=== PATIENT | female | born 1960 | race Caucasian/White ===

== ENCOUNTER 2022-04-21 09:34 | Observation (INO) ==
[2022-04-21 11:04] LABS: Basophils # (auto) 0.01 K/uL (0-0.2); Basophils % (auto) 0.2 %; Eosinophils # (auto) 0.01 K/uL (0-0.50); Eosinophils % (auto) 0.2 %; Hemoglobin 14.6 g/dl (12.0-16.0); Immature Granulocytes # (auto) 0.01 K/uL (0.00-0.02); Immature Granulocytes % (auto) 0.2 %; Lymphocytes # (auto) 0.59 K/uL (1.2-3.4); Mean Corpuscular Hemoglobin 31.3 pg (25.0-34.0); Mean Corpuscular Volume 92.3 fL (80.0-100.0); Mean Platelet Volume 9.2 fL (9.4-12.3); Monocytes # (auto) 0.25 K/uL (0.24-0.82); Monocytes % (auto) 5.9 %; Neutrophils # (auto) 3.34 K/uL (1.4-6.5); Neutrophils % (auto) 79.5 %; Platelet Count 284 K/uL (130-400); RDW Coefficient of Variation 12.7 % (11.5-14.5); RDW Standard Deviation 43.2 fL (36.4-46.3); Red Blood Count 4.66 M/uL (3.93-5.22); White Blood Count 4.21 K/ul (4.8-10.8)
[2022-04-21 11:27] LABS: Albumin Globulin Ratio 1.5 (0.9-2); Albumin Level 4.7 gm/dl (3.4-5.0); BUN Creatinine Ratio 14.1 (10-20); Bilirubin,Total 0.5 mg/dl (0.2-1.0); Calcium 9.8 mg/dl (8.5-10.1); Creatinine Clr Calc Pharmacy 65.8 ml/min; Est GFR (African American) 95.1 ml/min; Est GFR (Non-African American) 82.1 ml/min; Globulin 3.2 gm/dl (2.5-4.0); Potassium 3.4 mmol/L (3.5-5.1); Total Protein 7.9 gm/dl (6.0-8.3)
[2022-04-21] MEDS ORDERED: SODIUM CHLORIDE 0.9% 1000ML 1,000 ML IV ONE (12:07)
--- NOTE | 2022-04-21 12:07 | Emergency Department Note ---
Impression & Plan Syncope, Acute electrocardiogram changes, Diarrhea Admit to the [facility] ED Provider Note NAME: MICHELLE NOLEN AGE: 61 SEX: F ARRIVES VIA: Walk-In INFORMANT: Patient and her ED PROVIDER(S): Selena Beebe DO CHIEF COMPLAINT: Vomiting and diarrhea PLAN: Disposition: Admit to the [facility] Condition: Guarded MEDICAL DECISION MAKING: This is a 61-year-old female patient who presents to the emergency department with vomiting and diarrhea and an episode of syncope. The patient's vomiting and diarrhea subsided here in the emergency department. Initial EKG showed significant ST segment depression in the inferior leads compared to previous EKGs. Troponin was negative. Patient had no chest pain or episodes of SVT but was feeling some palpitations overnight. 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 Electrolytes are unremarkable. Patient's EKG was repeated here in the emergency department and the ST segment depression in the inferior leads seem to resolve but I remain concerned about those initial findings. [facility] and [facility] will evaluate for further management. Triage Nursing notes reviewed and agree with them. Additional history obtained from the is at the bedside Prior medical records reviewed Vital Signs: reviewed and remarkable for tachycardia Differential diagnosis: Cardiac dysrhythmia, cardiac ischemia, electrolyte abnormality, foodborne illness, viral gastroenteritis ER treatment provided: IV normal saline Diagnostics interpreted by me: ECG: Normal sinus rhythm at a rate of [address] with [address] There is ST segment depression in the inferior leads concerning for ischemia. Repeat ECG normal sinus rhythm at a rate of [address] resolution of the [address] segment depression in the inferior leads Cardiac Monitoring: Sinus tachycardia at 109 Laboratory studies: See below HPI: 61/F arrives for evaluation of vomiting and diarrhea. The patient had been on vacation last week and arrived home Thursday night. She was in her usual state of health. She awoke on Thursday morning with profuse diarrhea, nausea and then vomiting. Patient felt unwell throughout the day and tried to hydrate. Patient developed low-grade fever. She took a home COVID test which was negative. The patient continued to describe significant nausea and a fullness in her chest. This morning, the patient had a syncopal event which is not unusual for her when she feels unwell as she describes it. ROS: as per HPI for pertinent positives & negatives. A total of 10 systems reviewed and were otherwise negative. PAST MEDICAL HISTORY:See Below PAST SURGICAL HISTORY:See Below FAMILY HISTORY:See Below SOCIAL HISTORY:See Below HOME MEDICATIONS:See list ALLERGIES:None VITALS:See Below PHYSICAL EXAMINATION: HEENT: Head - normocephalic and atraumatic. Pupils are equal, round, and reactive to light. Extraocular eye muscles are intact, and sclera are anicteric. Nose - moist nasal mucosa without discharge. Mouth - moist buccal mucosa. Oropharynx is nonerythematous and there is no tonsillar exudate or edema noted. Neck: Supple; no cervical lymphadenopathy or thyromegaly Heart: Tachycardic rate and regular rhythm. There is a normal S1 and S2 with no murmurs, clicks, or gallops appreciated. Lungs: Clear to auscultation bilaterally with no wheezes, rales, or rhonchi. Abdomen: Soft, completely nontender, nondistended, with good bowel sounds. There are no palpable pulsatile masses or hepatosplenomegaly. There is no guarding, rigidity, or rebound noted. Extremities: No evidence of cyanosis, clubbing, or edema. There are easily palpable peripheral pulses. Skin: warm and dry with good turgor and no rashes. ED COURSE: Times/Reassessments: 1110: The patient was evaluated in room C9. A complete history and physical was performed. An order was placed for continuous cardiac monitoring. Patient was in a sinus tachycardia at 109. A twelve-lead EKG was obtained as described above. A repeat twelve-lead was ordered. COVID testing was ordered. Patient was bolused with a liter of normal saline solution. The patient could not provide a urine specimen or a stool specimen for testing. She had no further vomiting or diarrhea while here in the emergency department. I reviewed the results of the laboratory studies with the patient. She complained of a headache and was given a gram of Tylenol. [facility] and [facility] will evaluate for further management. Selena Beebe, DO Past Med/Surg History Medical History Ebstein anomaly Mitral valve prolapse SVT (supraventricular tachycardia) Family History Other Family history non-contributory Social History Smoking Status: Never smoker Preferred Language: Persian Feels Safe at Home: Yes Allergies Allergies Allergy/AdvReac Type Severity Reaction Status Date / Time No Known Allergies Allergy Unverified 06/13/16 17:29 Home Meds Home Medications Medication Instructions Recorded Confirmed eletriptan 20 mg tablet (Relpax) 20 mg PO DAILY PRN Headache 09/16/21 09/16/21 metoprolol succinate 25 mg 12.5 mg PO BID 09/16/21 09/16/21 tablet,extended release 24 hr tafluprost (PF) 0.0015 % eye drops 1 drp OPB HS 09/16/21 09/16/21 in a dropperette (Zioptan (PF)) trazodone 50 mg tablet 25 mg PO DAILY 09/16/21 09/16/21 Results & Data (ED) Vital Signs Vital Signs - 24 hr 04/21/22 09:46 04/21/22 12:42 04/21/22 13:00 Temperature 37.1 C Temperature Source Temporal Artery Scan Pulse Rate 109 H 85 Pulse Rate from SpO2 Sensor 84 Respiratory Rate 18 20 Respiratory Effort / Characteristics Non-Labored Spontaneous Respiratory Depth Normal Respiratory Pattern Regular Blood Pressure 123/70 123/74 Blood Pressure Mean 87 90 Pulse Oximetry 95 98 Oxygen Delivery Method Room Air Sepsis Recent Fever Within 48 Hours No Sepsis New/Unexplained Change in Mental Status No Sepsis Action Taken by Nursing No Action Required 04/21/22 13:00 Temperature Temperature Source Pulse Rate 82 Pulse Rate from SpO2 Sensor 82 Respiratory Rate 16 Respiratory Effort / Characteristics Respiratory Depth Respiratory Pattern Blood Pressure Blood Pressure Mean Pulse Oximetry 98 Oxygen Delivery Method Room Air Sepsis Recent Fever Within 48 Hours Sepsis New/Unexplained Change in Mental Status Sepsis Action Taken by Nursing Laboratory Data Result diagrams: 04/21/22 10:44 04/21/22 10:44 Lab Results 04/21/22 04/21/22 04/21/22 Range/Units 10:44 10:44 10:44 WBC 4.21 L (4.8-10.8) K/ul RBC 4.66 (3.93-5.22) M/uL Hgb 14.6 (12.0-16.0) g/dl Hct 43.0 (34.1-44.9) % MCV 92.3 (80.0-100.0) fL MCH 31.3 (25.0-34.0) pg MCHC 34.0 (32.0-36.0) g/dL RDW Std Deviation 43.2 (36.4-46.3) fL RDW Coeff of Marguerite 12.7 (11.5-14.5) % Plt Count 284 (130-400) K/uL MPV 9.2 L (9.4-12.3) fL Immature Gran % (Auto) 0.2 % Neut % (Auto) 79.5 % Lymph % (Auto) 14.0 % [place] % (Auto) 5.9 % Eos % (Auto) 0.2 % Baso % (Auto) 0.2 % Neut # (Auto) 3.34 (1.4-6.5) K/uL Lymph # (Auto) 0.59 L (1.2-3.4) K/uL [place] # (Auto) 0.25 (0.24-0.82) K/uL Eos # (Auto) 0.01 (0-0.50) K/uL Baso # (Auto) 0.01 (0-0.2) K/uL Immature Gran # (Auto) 0.01 (0.00-0.02) K/uL Sodium 140 (136-145) mmol/L Potassium 3.4 L (3.5-5.1) mmol/L Chloride 102 (98-107) mmol/L Carbon Dioxide 28 (21-32) mmol/L Anion Gap 10 (3-11) BUN 11 (6-23) mg/dl Creatinine 0.78 (0.6-1.2) mg/dl Est Cr Clr Drug Dosing 65.8 ml/min Est GFR ( Amer) 95.1 ml/min Est GFR (Non-Af Amer) 82.1 ml/min BUN/Creatinine Ratio 14.1 (10-20) Glucose 104 H (70-99(Fasting)) mg/dl Calcium 9.8 (8.5-10.1) mg/dl Total Bilirubin 0.5 (0.2-1.0) mg/dl AST 35 (13-39) U/L ALT 37 (7-52) U/L Alkaline Phosphatase 60 (34-104) U/L Troponin I High Sens 3.0 (0-14) pg/ml Total Protein 7.9 (6.0-8.3) gm/dl Albumin 4.7 (3.4-5.0) gm/dl Globulin 3.2 (2.5-4.0) gm/dl Albumin/Globulin Ratio 1.5 (0.9-2) Lipase 13 (11-82) U/L SARS-CoV-2, RNA, NAAT (NEGATIVE) 04/21/22 04/21/22 Range/Units 11:40 11:46 WBC (4.8-10.8) K/ul RBC (3.93-5.22) M/uL Hgb (12.0-16.0) g/dl Hct (34.1-44.9) % MCV (80.0-100.0) fL MCH (25.0-34.0) pg MCHC (32.0-36.0) g/dL RDW Std Deviation (36.4-46.3) fL RDW Coeff of Marguerite (11.5-14.5) % Plt Count (130-400) K/uL MPV (9.4-12.3) fL Immature Gran % (Auto) % Neut % (Auto) % Lymph % (Auto) % [place] % (Auto) % Eos % (Auto) % Baso % (Auto) % Neut # (Auto) (1.4-6.5) K/uL Lymph # (Auto) (1.2-3.4) K/uL [place] # (Auto) (0.24-0.82) K/uL Eos # (Auto) (0-0.50) K/uL Baso # (Auto) (0-0.2) K/uL Immature Gran # (Auto) (0.00-0.02) K/uL Sodium (136-145) mmol/L Potassium (3.5-5.1) mmol/L Chloride (98-107) mmol/L Carbon Dioxide (21-32) mmol/L Anion Gap (3-11) BUN (6-23) mg/dl Creatinine (0.6-1.2) mg/dl Est Cr Clr Drug Dosing ml/min Est GFR ( Amer) ml/min Est GFR (Non-Af Amer) ml/min BUN/Creatinine Ratio (10-20) Glucose (70-99(Fasting)) mg/dl Calcium (8.5-10.1) mg/dl Total Bilirubin (0.2-1.0) mg/dl AST (13-39) U/L ALT (7-52) U/L Alkaline Phosphatase (34-104) U/L Troponin I High Sens Cancelled (0-14) pg/ml Total Protein (6.0-8.3) gm/dl Albumin (3.4-5.0) gm/dl Globulin (2.5-4.0) gm/dl Albumin/Globulin Ratio (0.9-2) Lipase (11-82) U/L SARS-CoV-2, RNA, NAAT NEGATIVE (NEGATIVE) Administered Medications Discontinued Medications Sodium Chloride (Nss 1000ml) 1,000 mls @ 999 mls/hr IV .Q1H1M ONE Stop: 04/21/22 13:07 Last Admin: 04/21/22 12:36 Dose: 999 mls/hr Documented By: NMS Discharge Plan Visit Data Chief Complaint: Illness Stated Complaint: REF BY , DIARRHEA, VOMITNG, FEVER ED Provider: Selena Beebe Discharge Problem: Syncope, Acute electrocardiogram changes, Diarrhea Forms Stand Alone Forms: My [facility] Prescriptions Prescriptions: No Action trazodone 50 mg tablet 25 mg PO DAILY metoprolol succinate 25 mg tablet extended release 24 hr 12.5 mg PO BID eletriptan [Relpax] 20 mg tablet 20 mg PO DAILY PRN (Reason: Headache) Zioptan (PF) 0.0015 % dropperette 1 drp OPB HS Referrals Referrals: Radha Rhodes DO [Primary Care Provider] - : Syncope Qualifiers: Syncope type: unspecified Qualified Code(s): R55 - Syncope and collapse Diarrhea Qualifiers: Diarrhea type: unspecified type Qualified Code(s): R19.7 - Diarrhea, unspecified
[2022-04-21] MEDS ORDERED: ACETAMINOPHEN 500 MG TAB PO STA (14:17)
[2022-04-21] MEDS ORDERED: POTASSIUM CHLORIDE CRTAB 20 MEQ TABCR PO STA (14:30)
--- NOTE | 2022-04-21 15:50 | History & Physical Report ---
Date of Service April 21, 2022 Assessment & Plan (1) Syncope: Plan: 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 Reported to have transient EKG changes by EKG physician although initial troponin was negative. - Observe on telemetry overnight - Trend troponin - EKG in AM and with any cardiac symptoms - Spoke with cardiology - will consult and order ECHO (2) Acute electrocardiogram changes: Plan: See plan for #1 (3) Hypokalemia: Plan: - Replete oral and in IVF x 1 liter (4) Diarrhea: Plan: - Check stool studies for infection - Will give an additional one liter of IVF since not yet tolerated oral intake (5) Ebstein anomaly: Plan: Appreciate cardiology input (6) Paroxysmal atrial tachycardia: (7) Migraine: (8) Depression with anxiety: (9) Glaucoma: Plan: - Continue outpatient eye drops - pt brought from home Plan Continue other home medications and supplements as appropriate - discussed appropriate substitutions on med rec with pharmacy. Pt seen and reviewed with attending physician, Dr. Polanco. Plan of care discussed and as outlined above. Code Status: Full code DVT Prophylaxis: Marcelo Chaparro PA-C History of Present Illness Chief Complaint: Diarrhea, weakness, syncope Primary Care Provider: Radha Rhodes DO This is a 61 y/o female with a PMH of Ebstein's anomaly, migraine, lichen planus, depression and glaucoma who presents to the ED today with diarrhea, weakness, and syncope. Pt reports that she was on vacation last week and returned two days ago. Yesterday morning, she woke up and noted that her stomach felt unsettled then developed multiple episodes of diarrhea. By afternoon, she had developed associated vomiting. She was unable to keep even fluids down yesterday. In the evening she started to feel a bit better and went to be around 10 pm. At 12:15 am she woke up and attempted to go the bathroom. Because of her history of syncope with dehydration due to Ebstein's, she crawled on the floor but was so weak, she was unable to make it to the bathroom and passed out. She thinks that she was only out for a few seconds but she lay on the floor for five hours because she was too weak to get back to her bed. She continued with vomiting and diarrhea this morning and was unable to maintain oral intake so she called her line construction superintendent, Dr. Demarco, whose office recommended she go to the ED to be evaluated for dehydration. In the ED, she was noted to have transient EKG changes concerning for ischemia so she was referred for admission. Currently, pt reports some additional episodes of diarrhea in the ED but no further vomiting. Still has not taken anything significant by mouth since Thursday. She denies chest pain or heaviness but did note palpitations last night. No shortness of breath, cough, or URI symptoms. Has started with a CHAUDHARI in the ED. Has noted positional lightheadedness. Urine output today is decreased. Low-grade fevers yesterday. Granddaughter had a half day of vomiting late last week but no diarrhea, no other known sick contacts. Took a rapid COVID test at home that was negative. Allergies Allergy/AdvReac Type Severity Reaction Status Date / Time No Known Allergies Allergy Unverified 06/13/16 17:29 Home Medications Medication Instructions Recorded Confirmed Type eletriptan 20 mg tablet (Relpax) 20 mg PO 4XD PRN Migraine Headache 09/16/21 04/21/22 History tafluprost (PF) 0.0015 % eye drops 1 drp OPB HS 09/16/21 04/21/22 History in a dropperette (Zioptan (PF)) trazodone 50 mg tablet 25 - 50 mg PO HS 09/16/21 04/21/22 History calcium carb-Ca gluc 500 mg 1 tab PO DAILY 04/21/22 04/21/22 History calcium-magnesium ox-Mg gluc 250 mg tablet (Calcium Magnesium) carboxymethylcellulose sodium 0.25 1 drp ophthalmic (eye) BID 04/21/22 04/21/22 History % eye drops (TheraTears) cholecalciferol (vitamin D3) 25 25 mcg PO DAILY 04/21/22 04/21/22 History mcg (1,000 unit) capsule magnesium oxide 400 mg PO DAILY 04/21/22 04/21/22 History vrzrydoz-umn- 250 mg-dha 90 1 cap PO QAM 04/21/22 04/21/22 History mg-epa 160 [id number] capsule (Ocuvite Adult 50 Plus) potassium chloride 10 mEq 10 meq PO DAILY 04/21/22 04/21/22 History tablet,extended release(part/cryst) turmeric root extract 500 mg 500 mg PO DAILY 04/21/22 04/21/22 History capsule vitamin B complex 1 tab PO DAILY 04/21/22 04/21/22 History Past Med/Surg History Medical History (Updated 04/22/22 @ 09:35 by Tram Garza PA-C) Depression with anxiety Ebstein anomaly Glaucoma Lichen planus Migraine Paroxysmal atrial tachycardia Surgical History (Updated 04/21/22 @ 15:45 by Venita Christianson PA-C) History of cataract surgery History of laparoscopic cholecystectomy Family History Other Family history non-contributory Social History Smoking Status: Never smoker Second Hand Exposure: No; Hx Alcohol Use: Yes Alcohol type: wine Hx Substance Use: No Preferred Language: Romanian Communication Ability: Effective 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 Beliefs That Will Affect Care: None Current Living Situation: Spouse Feels Safe at Home: Yes Assistive Devices: None Review of Systems Review of Systems: All systems reviewed & are unremarkable except as noted in HPI & below Constitutional: + fever, + weakness and + anorexia Eyes: no diplopia and no worsening vision Ear, Nose, Mouth, Throat: no nasal congestion and no sore throat Respiratory: no cough and no dyspnea Cardiovascular: + palpitations and + syncope; no chest pain and no edema Gastrointestinal: as per Subjective / HPI Genitourinary: + decreased urination; no dysuria and no hematuria Musculoskeletal: no back pain and no neck pain Integumentary: no rash and no yellowing of the skin Neurologic: + generalized weakness and + headache(s) Psychiatric: + anxiety Physical Exam Constitutional: + thin; no acute distress Eyes: PERRL, conjunctivae normal, anicteric sclerae ENMT: external ear and nose normal, oropharynx normal Neck: trachea midline Respiratory: no respiratory distress and no labored breathing Auscultation: lungs clear to auscultation bilaterally; no rales, no rhonchi and no wheezes Cardiovascular: Rate/Rhythm: regular rate and regular rhythm Heart Sounds: + murmur Vessels: dorsalis pedis pulses present and radial pulses present Extremities: no pedal edema Gastrointestinal (Abdomen): Inspection/Auscultation: normal bowel sounds; abdomen not distended Percussion/Palpation: abdomen soft; abdomen nontender Musculoskeletal: Head/Neck/Chest: normocephalic, head atraumatic and neck supple Skin: no jaundice Neurologic: moves all extremities; no focal motor deficits Psychiatric: Orientation: alert and oriented x 3 Results & Data Results & Data ([facility]) Vital Signs (Past 12 Hours) Vital Signs Temp Pulse Resp BP Pulse Ox O2 Del Method 04/21/22 13:00 82 16 98 Room Air 04/21/22 13:00 123/74 04/21/22 12:42 85 20 98 04/21/22 09:46 37.1 C 109 H 18 123/70 95 Room Air Laboratory Results Laboratory Results - last 24 hr 04/21/22 04/21/22 04/21/22 10:04 10:44 10:44 WBC 4.21 L RBC 4.66 Hgb 14.6 Hct 43.0 MCV 92.3 MCH 31.3 MCHC 34.0 RDW Std Deviation 43.2 RDW Coeff of Marguerite 12.7 Plt Count 284 MPV 9.2 L Immature Gran % (Auto) 0.2 Neut % (Auto) 79.5 Lymph % (Auto) 14.0 [place] % (Auto) 5.9 Eos % (Auto) 0.2 Baso % (Auto) 0.2 Neut # (Auto) 3.34 Lymph # (Auto) 0.59 L [place] # (Auto) 0.25 Eos # (Auto) 0.01 Baso # (Auto) 0.01 Immature Gran # (Auto) 0.01 Sodium 140 Potassium 3.4 L Chloride 102 Carbon Dioxide 28 Anion Gap 10 BUN 11 Creatinine 0.78 Est Cr Clr Drug Dosing 65.8 Est GFR ( Amer) 95.1 Est GFR (Non-Af Amer) 82.1 BUN/Creatinine Ratio 14.1 Glucose 104 H Calcium 9.8 Magnesium 1.9 Total Bilirubin 0.5 AST 35 ALT 37 Alkaline Phosphatase 60 Troponin I High Sens Total Protein 7.9 Albumin 4.7 Globulin 3.2 Albumin/Globulin Ratio 1.5 Lipase 13 SARS-CoV-2, RNA, NAAT 04/21/22 04/21/22 04/21/22 10:44 11:40 11:46 WBC RBC Hgb Hct MCV MCH MCHC RDW Std Deviation RDW Coeff of Marguerite Plt Count MPV Immature Gran % (Auto) Neut % (Auto) Lymph % (Auto) [place] % (Auto) Eos % (Auto) Baso % (Auto) Neut # (Auto) Lymph # (Auto) [place] # (Auto) Eos # (Auto) Baso # (Auto) Immature Gran # (Auto) Sodium Potassium Chloride Carbon Dioxide Anion Gap BUN Creatinine Est Cr Clr Drug Dosing Est GFR ( Amer) Est GFR (Non-Af Amer) BUN/Creatinine Ratio Glucose Calcium Magnesium Total Bilirubin AST ALT Alkaline Phosphatase Troponin I High Sens 3.0 Cancelled Total Protein Albumin Globulin Albumin/Globulin Ratio Lipase SARS-CoV-2, RNA, NAAT NEGATIVE Medications Administered Discontinued Medications Acetaminophen (Acetaminophen 500 Mg Tab) 1,000 mg PO NOW STA Stop: 04/21/22 14:18 Last Admin: 04/21/22 15:23 Dose: 1,000 mg Documented By: MELE Sodium Chloride (Nss 1000ml) 1,000 mls @ 999 mls/hr IV .Q1H1M ONE Stop: 04/21/22 13:07 Last Infusion: 04/21/22 13:37 Dose: 0 mls/hr Documented By: Admin: 04/21/22 12:36 Dose: 999 mls/hr Documented By: NIK Potassium Chloride (Potassium Chloride Crtab 20 Meq Tabcr) 40 meq PO NOW STA Stop: 04/21/22 14:31 Last Admin: 04/21/22 15:23 Dose: 40 meq Documented By: MELE Code Status & VTE Plan VTE Prophylaxis Plan VTE Prophylaxis will be ordered: Yes Supervising Physician Co-Signing Physician Notes Pt was seen and examined. Agreed with Venita MCKEON exam, assessment and plan. 61 y/o female with a PMH of Ebstein's anomaly, migraine, lichen planus, depressi on and glaucoma who presents to the ED today with worsening diarrhea, weakness, and syncope. Pt said that she just go back from a family vacation trip 2 days ago. She said yesterday she started to have multiple episodes of watery diarrhea associated with vomiting. She said overnight she had more episodes of diarrhea and vomiting. She said that she was not able to keep anything on her stomach. Because of her history of syncope with dehydration due to Ebstein's, she crawled on the floor but was so weak, she was unable to make it to the bathroom and passed out. She was brought to the ED for further eval. In the ED, she was noted to have transient EKG changes concerning for ischemia. She was seen by cardiology and echo performed- result pending. Covid 19 test was negative on admission. Stool study sent. Continue IVF for now. Will monitor electrolytes. Continue monitor closely in tele. MD Sherri (1) Diarrhea Diarrhea type: unspecified type Qualified Code(s): R19.7 - Diarrhea, unspecified (2) Syncope Syncope type: unspecified Qualified Code(s): R55 - Syncope and collapse
--- NOTE | 2022-04-21 16:29 | Electrocardiogram Report ---
Test Reason : Blood Pressure : / mmHG Vent. Rate : 082 BPM Atrial Rate : 082 BPM P-R Int : 126 ms QRS Dur : 084 ms QT Int : 376 ms P-R-T Axes : -14 -15 002 degrees QTc Int : 439 ms Normal sinus rhythm Moderate voltage criteria for LVH, may be normal variant Borderline ECG When compared with ECG of 16-SEP-2021 09:32, Premature atrial complexes are no longer Present Questionable change in QRS axis T wave inversion now evident in Inferior leads Confirmed by Kapil Estrella ([id number]) on 04/21/2022 4:29:47 PM Referred By: Provider Outside Confirmed By:Kapil Estrella
[2022-04-21] MEDS ORDERED: ACETAMINOPHEN 325 MG TAB PO PRN (16:57)
[2022-04-21 17:19] LABS: Appearance Urine Clear (Clear); Bacteria Urine Automated Negative (Negative); Bilirubin Urine Negative (Negative); Blood Urine Negative (Negative); Color Urine Dark Yellow; Epithelial Cell Urine Auto 20-30 /lpf (0-5); Glucose Urine UA Negative (Negative); Ketones Urine 4+ (Negative); Leukocyte Esterase Urine Negative (Negative); Nitrite Urine Negative (Negative); Protein Urine 1+ (Negative); Specific Gravity Urine 1.029 (1.000-1.030); Urobilinogen Urine Negative (Negative)
[2022-04-21] MEDS ORDERED: NSS + 20MEQ KCL 20 MEQ/1,000 ML BAG IV SCH (18:00)
[2022-04-21] MEDS: traZODone HCL 50 MG TAB PO SCH (20:42)
[2022-04-21] MEDS: ARTIFICIAL TEARS OP SCH (20:51)
[2022-04-21] MEDS: TAFLUPROST 0.0015% OP SCH (20:54)
[2022-04-21 22:48] LABS: Adenovirus F 40/41 PCR Not Detected (NotDetected); Astrovirus PCR Not Detected (NotDetected); Campylobacter PCR Not Detected (NotDetected); Clostridium diff Toxin A/B PCR Not Detected (NotDetected); Cryptosporidium PCR Not Detected (NotDetected); Cyclospora cayetanensis PCR Not Detected (NotDetected); Entamoeba histolytica PCR Not Detected (NotDetected); Enteroaggregative E.coli(EAEC) Not Detected (NotDetected); Enterotoxigenic E.coli (ETEC) Not Detected (NotDetected); Giardia lamblia PCR Not Detected (NotDetected); Plesiomonas shigelloides PCR Not Detected (NotDetected); Rotavirus A PCR Not Detected (NotDetected); Salmonella PCR Not Detected (NotDetected); Sapovirus PCR Not Detected (NotDetected); Shiga-like Toxin E.coli (STEC) Not Detected (NotDetected); Shigella/Enteroinvasive E.coli Not Detected (NotDetected); Vibrio cholerae PCR Not Detected (NotDetected); Vibrio species PCR Not Detected (NotDetected); Yersinia enterocolitica PCR Not Detected (NotDetected)
[2022-04-21 22:52] LABS: Enteropathogenic E.coli (EPEC) DETECTED (NotDetected); Norovirus GI/GII PCR DETECTED (NotDetected)
[2022-04-22 07:18] LABS: Basophils # (auto) 0.01 K/uL (0-0.2); Basophils % (auto) 0.3 %; Eosinophils # (auto) 0.09 K/uL (0-0.50); Eosinophils % (auto) 2.4 %; Hematocrit (blood only) 35.8 % (34.1-44.9); Hemoglobin 12.2 g/dl (12.0-16.0); Immature Granulocytes # (auto) 0.02 K/uL (0.00-0.02); Immature Granulocytes % (auto) 0.5 %; Lymphocytes # (auto) 1.02 K/uL (1.2-3.4); Lymphocytes % (auto) 27.3 %; Mean Corpuscular Hemoglobin 31.7 pg (25.0-34.0); Mean Corpuscular Hgb Conc 34.1 g/dL (32.0-36.0); Mean Platelet Volume 9.5 fL (9.4-12.3); Monocytes # (auto) 0.48 K/uL (0.24-0.82); Monocytes % (auto) 12.8 %; Neutrophils # (auto) 2.12 K/uL (1.4-6.5); Neutrophils % (auto) 56.7 %; Platelet Count 223 K/uL (130-400); RDW Standard Deviation 43.8 fL (36.4-46.3); Red Blood Count 3.85 M/uL (3.93-5.22); White Blood Count 3.74 K/ul (4.8-10.8)
[2022-04-22 07:42] LABS: BUN Creatinine Ratio 17.1 (10-20); Calcium 8.8 mg/dl (8.5-10.1); Creatinine Clr Calc Pharmacy 67.7 ml/min; Est GFR (African American) 98.1 ml/min; Est GFR (Non-African American) 84.7 ml/min; Magnesium 1.7 mg/dl (1.7-2.4); Potassium 3.6 mmol/L (3.5-5.1)
--- NOTE | 2022-04-22 08:55 | Cardiology Consultation ---
Date of Consultation April 22, 2022 Assessment & Plan (1) Syncope: (2) Diarrhea: (3) Norovirus: (4) Ebstein anomaly: Plan Patient had dizziness and syncopal episode in setting of severe volume depletion, 48 hours of diarrhea. There was initial concern in the ER for inferior T wave inversion, however per my review this was present in single lead and likely lead placement. Repeat EKG was normal. HS troponin negative x2. Echo without acute changes, no wall motion abnormalities and congenital abnormality with known Kirill's anomaly. Unchanged from 2019 echo. No arrhythmias on telemetry. Continue IV fluids for hydration and supportive care for norovirus. No further cardiac testing warranted at this time. Case discussed with Dr. Velez. Supervising Physician Co-Signing Physician Notes Supervising Physician Attestation: I have personally performed a history and physical examination on the patient. I agree with the physician blood and plasma laboratory assistant's findings and plan as documented with the following additions. Subjective: Patient without complaint other than ongoing diarrhea. Improved compared to presentation. Exam: Cardiovascular: Regular rhythm without murmur, no edema Data: EKG performed 04/22/2022 reveals normal sinus rhythm at 71 bpm, normal EKG. Compared to the previous performed yesterday, QRS axis, P wave axis, T wave axis in lead III normal in the present EKG, question if transient change on the previous tracing related to lead placement. Assessment and Plan: Syncope related to gastrointestinal illness, volume depletion Potassium normal, status post replacement -No significant arrhythmias on telemetry. -No further work-up indicated from cardiac perspective. Ghulam Velez, History of Present Illness Reason for Consultation: Syncope; history of Kirill's anomaly Requesting Physician: Dr. Polanco Attending Physician: Dr. Velez History of Present Illness Patient is a 61 year old female known to [facility] cardiology, Dr. Demarco. 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 2.History of preload-dependent recurrent syncope with vasovagal exacerbation. 3.History of paroxysmal atrial tachycardia. Patient recently on vacation in [place] and upon returning home, developed significant diarrhea and abdominal pain over 48 hours with poor PO intake. She was weak and crawling to the bathroom yesterday and had possible syncopal episode with dizziness. No associated chest pain, palpitations. Due to concerns and ongoing diarrhea came to ER for evaluation. Upon arrival, there was concern for an abnormal change in her EKG with T wave inversion in inferior leads, however per my review, T wave inversion is in one single lead (lead III) with different axis, suggesting likely this was an error in lead placement . Repeat EKG was normal. HS troponin was normal x 2. Echo with normal LV systolic function, no wall motion abnormalities and findings consistent with Ebsteins anomaly. No change from prior echo in 2019. At time of consult, patient resting in bed. Had continued frequent diarrhea overnight. She denies recurrent dizziness or lightheadedness. No syncope or near syncope. No chest pain or SOB. Telemetry without arrhythmias. Stool positive for E.Coli and Norovirus. Allergies Allergy/AdvReac Type Severity Reaction Status Date / Time No Known Allergies Allergy Unverified 06/13/16 17:29 Home Medications Medication Instructions Recorded Confirmed Type eletriptan 20 mg tablet (Relpax) 20 mg PO 4XD PRN Migraine Headache 09/16/21 04/21/22 History tafluprost (PF) 0.0015 % eye drops 1 drp OPB HS 09/16/21 04/21/22 History in a dropperette (Zioptan (PF)) trazodone 50 mg tablet 25 - 50 mg PO HS 09/16/21 04/21/22 History calcium carb-Ca gluc 500 mg 1 tab PO DAILY 04/21/22 04/21/22 History calcium-magnesium ox-Mg gluc 250 mg tablet (Calcium Magnesium) carboxymethylcellulose sodium 0.25 1 drp ophthalmic (eye) BID 04/21/22 04/21/22 History % eye drops (TheraTears) cholecalciferol (vitamin D3) 25 25 mcg PO DAILY 04/21/22 04/21/22 History mcg (1,000 unit) capsule magnesium oxide 400 mg PO DAILY 04/21/22 04/21/22 History [id number] 250 mg-dha 90 1 cap PO QAM 04/21/22 04/21/22 History mg-epa 160 ts-ibrq-skvj-zeax capsule (Ocuvite Adult 50 Plus) potassium chloride 10 mEq 10 meq PO DAILY 04/21/22 04/21/22 History tablet,extended release(part/cryst) turmeric root extract 500 mg 500 mg PO DAILY 04/21/22 04/21/22 History capsule vitamin B complex 1 tab PO DAILY 04/21/22 04/21/22 History Patient History Medical History (Updated 04/22/22 @ 09:35 by Tram Garza PA-C) Depression with anxiety Ebstein anomaly Glaucoma Lichen planus Migraine Paroxysmal atrial tachycardia Surgical History (Updated 04/21/22 @ 15:45 by Venita Christianson PA-C) History of cataract surgery History of laparoscopic cholecystectomy Family History Other Family history non-contributory Social History Smoking Status: Never smoker Second Hand Exposure: No; Do You Dip or Chew Tobacco: No; Tobacco Cessation Education Requested by Patient: No Hx Alcohol Use: Yes Alcohol type: wine Hx Substance Use: No Preferred Language: Setswana Communication Ability: Effective Digital Sales Assistant Required: No Beliefs That Will Affect Care: None Current Living Situation: Spouse Other Information That Helps Us Care for You: No Feels Safe at Home: Yes Safety Concerns: Feels Safe At This Time Assistive Devices: None Review of Systems Review of Systems: All systems reviewed & are unremarkable except as noted in HPI & below Physical Exam Constitutional: WD/WN, vitals as above Neck: trachea midline, no thyromegaly Respiratory: normal respiratory effort, lungs clear to auscultation Cardiovascular: RRR, no murmur, no edema Gastrointestinal (Abdomen): Inspection/Auscultation: abdomen normal to inspection and + hyperactive bowel sounds; abdomen not distended Percussion/Palpation: abdomen soft Musculoskeletal: no cyanosis or clubbing, extremities motor strength 5/5 Neurologic: PERRL, EOMI, accommodation nl, no face palsy, no dysarthria Psychiatric: A+Ox3, euthymic affect Results & Data ([facility]) Vital Signs (Past 12 Hours) Vital Signs Temp Pulse Pulse Resp BP Pulse Ox O2 Del Method 04/22/22 07:43 36.6 C 82 16 120/72 98 Room Air 04/22/22 03:19 36.7 C 72 20 116/60 97 Room Air 04/22/22 00:55 76 04/21/22 22:45 36.8 C 75 20 123/65 98 Room Air Laboratory Results Cardiac Enzymes 04/21/22 04/21/22 04/21/22 Range/Units 10:44 10:44 11:46 AST 35 (13-39) U/L Troponin I High Sens 3.0 Cancelled (0-14) pg/ml 04/21/22 04/21/22 Range/Units 16:34 22:39 AST (13-39) U/L Troponin I High Sens 3.9 3.5 (0-14) pg/ml CBC 04/21/22 04/22/22 Range/Units 10:44 06:13 WBC 4.21 L 3.74 L (4.8-10.8) K/ul RBC 4.66 3.85 L (3.93-5.22) M/uL Hgb 14.6 12.2 (12.0-16.0) g/dl Hct 43.0 35.8 (34.1-44.9) % Plt Count 284 223 (130-400) K/uL Neut # (Auto) 3.34 2.12 (1.4-6.5) K/uL Lymph # (Auto) 0.59 L 1.02 L (1.2-3.4) K/uL Swift # (Auto) 0.25 0.48 (0.24-0.82) K/uL Eos # (Auto) 0.01 0.09 (0-0.50) K/uL Baso # (Auto) 0.01 0.01 (0-0.2) K/uL Comprehensive Metabolic Panel 04/21/22 04/22/22 Range/Units 10:44 06:13 Sodium 140 141 (136-145) mmol/L Potassium 3.4 L 3.6 (3.5-5.1) mmol/L Chloride 102 109 H (98-107) mmol/L Carbon Dioxide 28 25 (21-32) mmol/L BUN 11 13 (6-23) mg/dl Creatinine 0.78 0.76 (0.6-1.2) mg/dl Glucose 104 H 75 (70-99(Fasting)) mg/dl Calcium 9.8 8.8 (8.5-10.1) mg/dl AST 35 (13-39) U/L ALT 37 (7-52) U/L Alkaline Phosphatase 60 (34-104) U/L Total Protein 7.9 (6.0-8.3) gm/dl Albumin 4.7 (3.4-5.0) gm/dl Intake and Output 04/21/22 04/22/22 04/22/22 22:59 06:59 14:59 Intake Total 150 / 1150 Output Total 150 / 160 10 / 160 Balance -150 / 990 140 / 990 Intake: Oral 150 / 150 Output: Urine 150 / 150 # Bowel Movements 10 / 10 Other: Other Intake Source Apx amount in ice chips # Unmeasured Voids 2 Weight 54 kg 55.2 kg Weight Measurement Method [facility] Diagnostic Findings Telemetry reviewed: NSR in the 70's. Rare PAC's. No concerning arrhythmias. EKG reviewed from admission: NSR with voltage criteria for LVH. T wave inversion only in lead III, likely lead placement due to different axis as well. No acute changes Repeat EKG this morning: NSR, Normal EKG No acute changes Echo report reviewed dated 04/21/22: Sinus rhythm in the 80's noted during the echo. There is normal LV wall thickness. No regional wall motion abnormalities noted. The LV EF is 60-65% RV is normal in size and function. Tricuspid valve is apically displaced consistent with patient's history of Ebsteins anomaly Mild TR Estimated pulm artery systolic pressure is at the upper limit of normal, to mildly elevated, in the range of 35-40 mmHg. Right atrium is mildly dilated. Echocardiogram September 16 2018 The examination is adequate to evaluate the referral indication. The LV wall thickness is normal. The left ventricular wall motion is normal. Calculated LV ejection Fraction = 61% (bi-plane method of discs). The tricuspid valve apparatus is displaced apically consistent with the patient's history of Ebstein's anomaly. Mild tricuspid regurgitation is present. The right ventricular systolic function is normal without chamber dilatation. Mild mitral regurgitation is present. The aortic valve has three leaflets. Mild aortic valve regurgitation is present. The estimated pulmonary artery systolic pressure is 28mm Hg (normal). The aortic root diameter is normal. The proximal ascending aorta is not visualized sufficiently enough to allow measurement. Compared to the report of the prior study dated 07/25/2014, there has been no significant interval change Medications Administered Medications eletriptan 20 mg tablet (Relpax) 20 mg PO 4XD PRN Migraine Headache 09/16/21 [History Confirmed 04/21/22] tafluprost (PF) 0.0015 % eye drops in a dropperette (Zioptan (PF)) 1 drp OPB HS 09/16/21 [History Confirmed 04/21/22] trazodone 50 mg tablet 25 - 50 mg PO HS 09/16/21 [History Confirmed 04/21/22] calcium carb-Ca gluc 500 mg calcium-magnesium ox-Mg gluc 250 mg tablet (Calcium Magnesium) 1 tab PO DAILY 04/21/22 [History Confirmed 04/21/22] carboxymethylcellulose sodium 0.25 % eye drops (TheraTears) 1 drp ophthalmic (eye) BID 04/21/22 [History Confirmed 04/21/22] cholecalciferol (vitamin D3) 25 mcg (1,000 unit) capsule 25 mcg PO DAILY 04/21/22 [History Confirmed 04/21/22] magnesium oxide 400 mg PO DAILY 04/21/22 [History Confirmed 04/21/22] lqrghzla-vse- 250 mg-dha 90 mg-epa 160 yb-pusy-xzda-zeax capsule (Ocuvite Adult 50 Plus) 1 cap PO QAM 04/21/22 [History Confirmed 04/21/22] potassium chloride 10 mEq tablet,extended release(part/cryst) 10 meq PO DAILY 04/21/22 [History Confirmed 04/21/22] turmeric root extract 500 mg capsule 500 mg PO DAILY 04/21/22 [History Confirmed 04/21/22] vitamin B complex 1 tab PO DAILY 04/21/22 [History Confirmed 04/21/22] Home Medications Acetaminophen (Acetaminophen 325 Mg Tab) 650 mg PO Q4H PRN PRN Reason: Pain or Fever Stop: 05/21/22 16:56 Artificial Tears (Artificial Tears) 1 drops OP BID ELIZABETH Stop: 05/21/22 20:59 Last Admin: 04/22/22 08:59 Dose: 1 drops Enoxaparin Sodium (Enoxaparin Inj 40 Mg/0.4 Ml Syr) 40 mg SQ QAM ELIZABETH Stop: 05/22/22 08:59 Last Admin: 04/22/22 08:59 Dose: Not Given Magnesium Oxide (Magnesium Oxide 400 Mg Tab) 400 mg PO DAILY ELIZABETH Stop: 05/22/22 08:59 Last Admin: 04/22/22 08:59 Dose: 400 mg Miscellaneous (Eletriptan [Relpax] 20 Mg Tablet ~ Order Awaiting Action) 1 each N/A QS ELIZABETH Stop: 05/22/22 00:00 Last Admin: 04/22/22 09:30 Dose: Not Given Multivitamins/Minerals (Cerovite Adv Formula Tab) 1 tab PO QAM ELIZABETH Stop: 05/22/22 08:59 Last Admin: 04/22/22 08:59 Dose: 1 tab Multivitamins/Minerals (Calcium 600mg + Vit D 400 Iu Tab) 1 tab PO DAILY ELIZABETH Stop: 05/22/22 08:59 Last Admin: 04/22/22 08:59 Dose: 1 tab Tafluprost (Pf) [ Zioptan (Pf)] 0.0015 % Dropperette - Non -Formulary Patient's Own Med 1 each OP HS ELIZABETH Stop: 05/21/22 20:59 Last Admin: 04/21/22 20:54 Dose: 1 drops Potassium Chloride (Potassium Chloride 10 Meq Tabcr) 10 meq PO DAILY ELIZABETH Stop: 05/22/22 08:59 Last Admin: 04/22/22 08:59 Dose: 10 meq Trazodone HCl (Trazodone Hcl 50 Mg Tab) 50 mg PO HS ELIZABETH Stop: 05/21/22 20:59 Last Admin: 04/21/22 20:42 Dose: 50 mg Vitamin B Complex (Vitamin B Complex Tab) 1 tab PO DAILY ELIZABETH Stop: 05/22/22 08:59 Last Admin: 04/22/22 08:59 Dose: 1 tab Vitamin D (Cholecalciferol 1,000 Units 25 Mcg Tab) 1,000 units PO DAILY ELIZABETH Stop: 05/22/22 08:59 Last Admin: 04/22/22 08:59 Dose: 1,000 units (1) Diarrhea Diarrhea type: unspecified type Qualified Code(s): R19.7 - Diarrhea, unspecified (2) Syncope Syncope type: unspecified Qualified Code(s): R55 - Syncope and collapse
[2022-04-22] MEDS: POTASSIUM CHLORIDE 10 MEQ TABCR PO SCH (08:59)
[2022-04-22] MEDS: CALCIUM 600MG + VIT D 400 IU TAB PO SCH (08:59)
[2022-04-22] MEDS: CEROVITE ADV FORMULA TAB PO SCH (08:59)
[2022-04-22] MEDS: ENOXAPARIN INJ 40 MG/0.4 ML SYR SQ SCH (08:59)
[2022-04-22] MEDS: CHOLECALCIFEROL 1,000 UNITS 25 MCG TAB PO SCH (08:59)
[2022-04-22] MEDS: VITAMIN B COMPLEX TAB PO SCH (08:59)
[2022-04-22] MEDS: MAGNESIUM OXIDE 400 MG TAB PO SCH (08:59)
[2022-04-22] MEDS: ARTIFICIAL TEARS OP SCH ×2 (08:59→20:57)
--- NOTE | 2022-04-22 14:03 | Electrocardiogram Report ---
Test Reason : Blood Pressure : / mmHG Vent. Rate : 071 BPM Atrial Rate : 071 BPM P-R Int : 134 ms QRS Dur : 084 ms QT Int : 394 ms P-R-T Axes : 074 080 074 degrees QTc Int : 428 ms Normal sinus rhythm Normal ECG When compared with ECG of 21-APR-2022 11:40, Questionable change in QRS axis T wave inversion no longer evident in Inferior leads Confirmed by Kapil Estrella ([id number]) on 04/22/2022 2:02:47 PM Referred By: Provider Outside Confirmed By:Kapil Estrella
--- NOTE | 2022-04-22 14:45 | Hospitalist Progress Note ---
Date of Service April 22, 2022 Assessment & Plan (1) Syncope: Plan: 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 Reported to have transient EKG changes by EKG physician although initial troponin was negative. Possible related to dehydration from the diarrhea ECHO showed normal LV wall thickness. No wall motion abnormality. EF 60-65% EKG performed 04/22/2022 reveals normal sinus rhythm at 71 bpm, normal EKG as per cardiology No significant arrhythmias on telemetry. Cardiology on board - no further cardiac work up indicated as per cardiology stable (2) Diarrhea: Plan: Stool studies positive for norovirus and E.Coli (EPEC) Continue conservative management Diarrhea is slowing down Pt would like to hold on additional IVF since she has been drinking enough water Diet advance as tolerated Continue monitor electrolytes (3) Hypokalemia: Plan: Potassium 3.4 on admission K 3.6 today Stable (4) Ebstein anomaly: Plan: Stable (5) Paroxysmal atrial tachycardia: Plan: Stable (6) Migraine: Plan: Currently denies any headache stable (7) Depression with anxiety: Plan: Continue Trazadone (8) Glaucoma: Plan: Continue outpatient eye drops Plan DVT Prophylaxis: SCDs, Lovenox Disposition Discharge home tomorrow Admission and Anticipated Discharge Date Admission Date: April 21, 2022 Subjective Pt was seen and examined for follow of diarrhea Lying in bed with no acute distress Pt said that she was up all night using the bathroom due to the diarrhea She said that she had about 5 episodes of diarrhea last night denies any chest pain, palpitation, dizziness and SOB Review of Systems Review of Systems: All systems reviewed & are unremarkable except as noted in Subjective Physical Exam Physical Exam: General- No acute distress Head- atraumatic Eyes- PERRL, EOMI, ENT- oropharynx clear Neck- supple, no JVD Lungs- clear to auscultation Heart- regular rhythm; murmur Abdomen- normal bowel sounds, soft, nontender Extremities- no calf tenderness Neuro- alert, oriented x 3; PERRL, EOMI; no facial palsy; no dysarthria Skin- warm & dry Results & Data Results & Data ([facility]) Vital Signs (Past 12 Hours) Vital Signs Temp Pulse Resp BP Pulse Ox O2 Del Method 04/22/22 11:48 36.8 C 83 18 103/68 97 Room Air 04/22/22 09:40 Room Air 04/22/22 07:43 36.6 C 82 16 120/72 98 Room Air 04/22/22 03:19 36.7 C 72 20 116/60 97 Room Air (1) Diarrhea Diarrhea type: unspecified type Qualified Code(s): R19.7 - Diarrhea, unspecified (2) Syncope Syncope type: unspecified Qualified Code(s): R55 - Syncope and collapse
[2022-04-22] MEDS ORDERED: ACETAMINOPHEN 325 MG TAB PO PRN (18:00)
[2022-04-22] MEDS: TAFLUPROST 0.0015% OP SCH (20:57)
[2022-04-22] MEDS: traZODone HCL 50 MG TAB PO SCH (20:58)
[2022-04-23] MEDS: CALCIUM 600MG + VIT D 400 IU TAB PO SCH (08:45)
[2022-04-23] MEDS: VITAMIN B COMPLEX TAB PO SCH (08:45)
[2022-04-23] MEDS: CHOLECALCIFEROL 1,000 UNITS 25 MCG TAB PO SCH (08:45)
[2022-04-23] MEDS: ARTIFICIAL TEARS OP SCH (08:46)
[2022-04-23] MEDS: MAGNESIUM OXIDE 400 MG TAB PO SCH (08:46)
[2022-04-23] MEDS: POTASSIUM CHLORIDE 10 MEQ TABCR PO SCH (08:46)
[2022-04-23] MEDS: CEROVITE ADV FORMULA TAB PO SCH (08:46)
[2022-04-23] MEDS: ENOXAPARIN INJ 40 MG/0.4 ML SYR SQ SCH (08:46)
--- NOTE | 2022-04-23 10:18 | Cardiology Progress Note ---
Date of Service April 23, 2022 Assessment & Plan (1) Syncope: (2) Diarrhea: (3) Norovirus: (4) Ebstein anomaly: Plan Patient had dizziness and syncopal episode in setting of severe volume depletion, 48 hours of diarrhea. There was initial concern in the ER for inferior T wave inversion, however per my review this was present in single lead with different axis and likely lead misplacement. Repeat EKG was normal. HS troponin negative x2. Echo without acute changes, no wall motion abnormalities and congenital abnormality with known Kirill's anomaly. Unchanged from 2019 echo. No arrhythmias on telemetry. Continue IV fluids for hydration and supportive care for norovirus. No further cardiac testing warranted at this time. Hopefully patient will be able to be discharged later Case discussed with Dr. Velez Admission and Anticipated Discharge Date Admission Date: April 21, 2022 Supervising Physician Co-Signing Physician Notes Supervising Physician Attestation: I have personally performed a history and physical examination on the patient. I agree with the physician assistant office manager's findings and plan as documented with the following additions. Subjective: Patient feeling subjectively improved this afternoon. Telemetry reveals sinus rhythm without arrhythmia. Exam: Regular rhythm, no murmurs Assessment and Plan: Symptomatic norovirus, presented with volume depletion, near syncope -Echo findings reassuring. -I do not think her underlying congenital heart disease played a role in her presentation. Echo reveals stable findings, telemetry was without arrhythmia. -Stable for discharge from cardiology perspective Ghulam Velez, DO Subjective Patient resting in bed. Ongoing diarrhea noted. Trying to increase diet as tolerated. No recurrent dizziness or lightheadedness. No chest pain or SOB. Offers no cardiac complaints. Review of Systems Review of Systems: All systems reviewed & are unremarkable except as noted in HPI & below Physical Exam Constitutional: WD/WN, vitals as above Neck: trachea midline, no thyromegaly Respiratory: normal respiratory effort, lungs clear to auscultation Cardiovascular: RRR, no murmur, no edema Gastrointestinal (Abdomen): Inspection/Auscultation: abdomen normal to inspection and + hyperactive bowel sounds; abdomen not distended Percussion/Palpation: abdomen soft Musculoskeletal: no cyanosis or clubbing, extremities motor strength 5/5 Neurologic: PERRL, EOMI, accommodation nl, no face palsy, no dysarthria Psychiatric: A+Ox3, euthymic affect Results & Data ([place]) Vital Signs (Past 12 Hours) Vital Signs Temp Pulse Pulse Resp BP Pulse Ox O2 Del Method 04/23/22 07:06 37 C 83 20 118/70 96 04/23/22 04:57 36.6 C 98 H 18 123/71 98 Room Air 04/22/22 23:46 79 04/22/22 23:36 37 C 78 16 113/62 97 Room Air Laboratory Results Intake and Output 04/22/22 04/23/22 04/23/22 22:59 06:59 14:59 Intake Total 200 / 1740 Output Total Balance 197 / 1734 -3 1734 Intake: Oral 200 / 740 Output: # Bowel Movements Other: # Unmeasured Voids 3 Weight 55 kg Weight Measurement Method [facility] Diagnostic Findings Telemetry reviewed: NSR without arrhythmias Echo report reviewed dated 04/21/22: Sinus rhythm in the 80's noted during the echo. There is normal LV wall thickness. No regional wall motion abnormalities noted. The LV EF is 60-65% RV is normal in size and function. Tricuspid valve is apically displaced consistent with patient's history of Ebsteins anomaly Mild TR Estimated pulm artery systolic pressure is at the upper limit of normal, to mildly elevated, in the range of 35-40 mmHg. Right atrium is mildly dilated. Medications Administered Current Inpatient Medications Acetaminophen (Acetaminophen 325 Mg Tab) 650 mg PO Q6H PRN PRN Reason: Pain or Fever Stop: 05/21/22 16:56 Artificial Tears (Artificial Tears) 1 drops OP BID ELIZABETH Stop: 05/21/22 20:59 Last Admin: 04/23/22 08:46 Dose: 1 drops Enoxaparin Sodium (Enoxaparin Inj 40 Mg/0.4 Ml Syr) 40 mg SQ QAM ELIZABETH Stop: 05/22/22 08:59 Last Admin: 04/23/22 08:46 Dose: 40 mg Magnesium Oxide (Magnesium Oxide 400 Mg Tab) 400 mg PO DAILY ELIZABETH Stop: 05/22/22 08:59 Last Admin: 04/23/22 08:46 Dose: 400 mg Multivitamins/Minerals (Cerovite Adv Formula Tab) 1 tab PO QAM ELIZABETH Stop: 05/22/22 08:59 Last Admin: 04/23/22 08:46 Dose: 1 tab Multivitamins/Minerals (Calcium 600mg + Vit D 400 Iu Tab) 1 tab PO DAILY ELIZABETH Stop: 05/22/22 08:59 Last Admin: 04/23/22 08:45 Dose: 1 tab Tafluprost (Pf) [ Zioptan (Pf)] 0.0015 % Dropperette - Non -Formulary Patient's Own Med 1 each OP HS ELIZABETH Stop: 05/21/22 20:59 Last Admin: 04/22/22 20:57 Dose: 1 drops Potassium Chloride (Potassium Chloride 10 Meq Tabcr) 10 meq PO DAILY ELIZABETH Stop: 05/22/22 08:59 Last Admin: 04/23/22 08:46 Dose: 10 meq Trazodone HCl (Trazodone Hcl 50 Mg Tab) 50 mg PO HS ELIZABETH Stop: 05/21/22 20:59 Last Admin: 04/22/22 20:58 Dose: 50 mg Vitamin B Complex (Vitamin B Complex Tab) 1 tab PO DAILY ELIZABETH Stop: 05/22/22 08:59 Last Admin: 04/23/22 08:45 Dose: 1 tab Vitamin D (Cholecalciferol 1,000 Units 25 Mcg Tab) 1,000 units PO DAILY ELIZABETH Stop: 05/22/22 08:59 Last Admin: 04/23/22 08:45 Dose: 1,000 units (1) Diarrhea Diarrhea type: unspecified type Qualified Code(s): R19.7 - Diarrhea, unspecified (2) Syncope Syncope type: unspecified Qualified Code(s): R55 - Syncope and collapse
--- NOTE | 2022-04-23 13:54 | Hospitalist Progress Note ---
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 Reported to have transient EKG changes by EKG physician although initial troponin was negative. Possible related to dehydration from the diarrhea ECHO showed normal LV wall thickness. No wall motion abnormality. EF 60-65% EKG performed 04/22/2022 reveals normal sinus rhythm at 71 bpm, normal EKG as per cardiology No significant arrhythmias on telemetry. Cardiology on board - no further cardiac work up indicated as per cardiology Remains stable without any more dizziness and/or syncope-no arrhythmias noted on the monitor She has been ambulating in the room without any significant symptoms She remains hemodynamically stable and wants to go home (2) Diarrhea: Plan: Stool studies positive for norovirus and E.Coli (EPEC) Continue conservative management Diarrhea is slowing down Pt would like to hold on additional IVF since she has been drinking enough water Diet advance as tolerated Her electrolytes have been normalized Diet will be advanced to regular and if there is no more diarrhea she will be discharged home this afternoon (3) Hypokalemia: Plan: Potassium 3.4 on admission K 3.6 today Stable at 3.6 today (4) Ebstein anomaly: Plan: Stable (5) Paroxysmal atrial tachycardia: Plan: Stable (6) Migraine: Plan: Currently denies any headache stable (7) Depression with anxiety: Plan: Continue Trazadone (8) Glaucoma: Plan: Continue outpatient eye drops Plan DVT Prophylaxis: SCDs, Lovenox Disposition Discharge home tomorrow Admission and Anticipated Discharge Date Admission Date: April 21, 2022 Subjective 04/23/2022 The patient was seen and examined in telemetry unit She has had on air talent diarrhea but much decreased since this morning Denies any abdominal pain, any nausea and or vomiting or distention She has been ambulating in the hallway and in the room without any significant symptoms Review of Systems Review of Systems: All systems reviewed and are unremarkable except as noted below Gastrointestinal: No abdominal distention and/or pain and the diarrhea seems to be lessening Physical Exam Physical Exam: Sitting at the edge of the bed without any acute distress Constitutional: well developed, well nourished and average body habitus; not ill appearing Eyes: PERRL, conjunctivae normal, anicteric sclerae ENMT: external ear and nose normal, oropharynx normal Neck: trachea midline, no thyromegaly Respiratory: no respiratory distress Auscultation: lungs clear to ausc ultation bilaterally Cardiovascular: Rate/Rhythm: regular rate and regular rhythm; not tachycardic Heart Sounds: normal S1 and normal S2; no murmur Extremities: no edema Gastrointestinal (Abdomen): Inspection/Auscultation: normal bowel sounds; abdomen not distended Percussion/Palpation: abdomen soft; abdomen nontender Musculoskeletal: No acute arthritis in any joint Neurologic: normal touch/pain/proprioception; no focal motor deficits and not confused Psychiatric: A+Ox3, euthymic affect Lymphatic: no cervical or axillary lymphadenopathy Results & Data Results & Data ([facility]) Vital Signs (Past 12 Hours) Vital Signs Temp Pulse Resp BP Pulse Ox O2 Del Method 04/23/22 12:08 37.1 C 81 16 113/62 96 Room Air 04/23/22 07:06 37 C 83 20 118/70 96 04/23/22 04:57 36.6 C 98 H 18 123/71 98 Room Air Medications Administered Current Inpatient Medications Acetaminophen (Acetaminophen 325 Mg Tab) 650 mg PO Q6H PRN PRN Reason: Pain or Fever Stop: 05/21/22 16:56 Artificial Tears (Artificial Tears) 1 drops OP BID ELIZABETH Stop: 05/21/22 20:59 Last Admin: 04/23/22 08:46 Dose: 1 drops Enoxaparin Sodium (Enoxaparin Inj 40 Mg/0.4 Ml Syr) 40 mg SQ QAM ELIZABETH Stop: 05/22/22 08:59 Last Admin: 04/23/22 08:46 Dose: 40 mg Magnesium Oxide (Magnesium Oxide 400 Mg Tab) 400 mg PO DAILY ELIZABETH Stop: 05/22/22 08:59 Last Admin: 04/23/22 08:46 Dose: 400 mg Multivitamins/Minerals (Cerovite Adv Formula Tab) 1 tab PO QAM ELIZABETH Stop: 05/22/22 08:59 Last Admin: 04/23/22 08:46 Dose: 1 tab Multivitamins/Minerals (Calcium 600mg + Vit D 400 Iu Tab) 1 tab PO DAILY ELIZABETH Stop: 05/22/22 08:59 Last Admin: 04/23/22 08:45 Dose: 1 tab Tafluprost (Pf) [ Zioptan (Pf)] 0.0015 % Dropperette - Non -Formulary Patient's Own Med 1 each OP HS ELIZABETH Stop: 05/21/22 20:59 Last Admin: 04/22/22 20:57 Dose: 1 drops Potassium Chloride (Potassium Chloride 10 Meq Tabcr) 10 meq PO DAILY ELIZABETH Stop: 05/22/22 08:59 Last Admin: 04/23/22 08:46 Dose: 10 meq Trazodone HCl (Trazodone Hcl 50 Mg Tab) 50 mg PO HS ELIZABETH Stop: 05/21/22 20:59 Last Admin: 04/22/22 20:58 Dose: 50 mg Vitamin B Complex (Vitamin B Complex Tab) 1 tab PO DAILY ELIZABETH Stop: 05/22/22 08:59 Last Admin: 04/23/22 08:45 Dose: 1 tab Vitamin D (Cholecalciferol 1,000 Units 25 Mcg Tab) 1,000 units PO DAILY ELIZABETH Stop: 05/22/22 08:59 Last Admin: 04/23/22 08:45 Dose: 1,000 units (1) Syncope Syncope type: unspecified Qualified Code(s): R55 - Syncope and collapse (2) Diarrhea Diarrhea type: unspecified type Qualified Code(s): R19.7 - Diarrhea, unspecified
--- NOTE | 2022-04-24 08:31 | Discharge Summary ---
Date of Service April 23, 2022 Admission HPI Per Admitting Provider This is a 61 y/o female with a PMH of Ebstein's anomaly, migraine, lichen planus, depression and glaucoma who presents to the ED today with diarrhea, weakness, and syncope. Pt reports that she was on vacation last week and returned two days ago. Yesterday morning, she woke up and noted that her stomach felt unsettled then developed multiple episodes of diarrhea. By afternoon, she had developed associated vomiting. She was unable to keep even fluids down yesterday. In the evening she started to feel a bit better and went to be around 10 pm. At 12:15 am she woke up and attempted to go the bathroom. Because of her history of syncope with dehydration due to Ebstein's, she crawled on the floor but was so weak, she was unable to make it to the bathroom and passed out. She thinks that she was only out for a few seconds but she lay on the floor for five hours because she was too weak to get back to her bed. She continued with vomiting and diarrhea this morning and was unable to maintain oral intake so she called her captain assistant, Dr. Demarco, whose office recommended she go to the ED to be evaluated for dehydration. In the ED, she was noted to have transient EKG changes concerning for ischemia so she was referred for admission. Currently, pt reports some additional episodes of diarrhea in the ED but no further vomiting. Still has not taken anything significant by mouth since Thursday. She denies chest pain or heaviness but did note palpitations last night. No shortness of breath, cough, or URI symptoms. Has started with a CHAUDHARI in the ED. Has noted positional lightheadedness. Urine output today is decreased. Low-grade fevers yesterday. Granddaughter had a half day of vomiting late last week but no diarrhea, no other known sick contacts. Took a rapid COVID test at home that was negative. Admission Exam Per Admitting Provider Constitutional: + thin; no acute distress Eyes: PERRL, conjunctivae normal, anicteric sclerae ENMT: external ear and nose normal, oropharynx normal Neck: trachea midline Respiratory: no respiratory distress and no labored breathing Auscultation: lungs clear to auscultation bilaterally; no rales, no rhonchi and no wheezes Cardiovascular: Rate/Rhythm: regular rate and regular rhythm Heart Sounds: + murmur Vessels: dorsalis pedis pulses present and radial pulses present Extrem ities: no pedal edema Gastrointestinal (Abdomen): Inspection/Auscultation: normal bowel sounds; abdomen not distended Percussion/Palpation: abdomen soft; abdomen nontender Musculoskeletal: Head/Neck/Chest: normocephalic, head atraumatic and neck supple Skin: no jaundice Neurologic: moves all extremities; no focal motor deficits Psychiatric: Orientation: alert and oriented x 3 Principal Diagnosis Syncope secondary to volume depletion, diarrhea due to norovirus and E. coli infection, paroxysmal atrial tachycardia Discharge Exam Physical Exam: Sitting at the edge of the bed without any acute distress Constitutional: well developed, well nourished and average body habitus; not ill appearing Eyes: PERRL, conjunctivae normal, anicteric sclerae ENMT: external ear and nose normal, oropharynx normal Neck: trachea midline, no thyromegaly Respiratory: no respiratory distress Auscultation: lungs clear to auscultation bilaterally Cardiovascular: Rate/Rhythm: regular rate and regular rhythm; not tachycardic Heart Sounds: normal S1 and normal S2; no murmur Extremities: no edema Gastrointestinal (Abdomen): Inspection/Auscultation: normal bowel sounds; abdomen not distended Percussion/Palpation: abdomen soft; abdomen nontender Musculoskeletal: No acute arthritis in any joint Neurologic: normal touch/pain/proprioception; no focal motor deficits and not confused Psychiatric: A+Ox3, euthymic affect Lymphatic: no cervical or axillary lymphadenopathy Discharge Data Allergies Allergy/AdvReac Type Severity Reaction Status Date / Time No Known Allergies Allergy Unverified 06/13/16 17:29 Consultations 04/21/22 14:10 ED Decision to Admit Stat 04/21/22 15:26 Consult Cardiology Routine Hospital Course (1) Syncope: (2) Diarrhea: (3) Hypokalemia: (4) Ebstein anomaly: (5) Paroxysmal atrial tachycardia: (6) Migraine: (7) Depression with anxiety: (8) Glaucoma: Plan Date of Service April 23, 2022 Assessment & Plan (1) Syncope: Plan: 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 Reported to have transient EKG changes by EKG physician although initial troponin was negative. Possible related to dehydration from the diarrhea ECHO showed normal LV wall thickness. No wall motion abnormality. EF 60-65% EKG performed 04/22/2022 reveals normal sinus rhythm at 71 bpm, normal EKG as per cardiology No significant arrhythmias on telemetry. Cardiology on board - no further cardiac work up indicated as per cardiology Remains stable without any more dizziness and/or syncope-no arrhythmias noted on the monitor She has been ambulating in the room without any significant symptoms She remains hemodynamically stable and wants to go home (2) Diarrhea: Plan: Stool studies positive for norovirus and E.Coli (EPEC) Continue conservative management Diarrhea is slowing down Pt would like to hold on additional IVF since she has been drinking enough water Diet advance as tolerated Her electrolytes have been normalized Diet will be advanced to regular and if there is no more diarrhea she will be discharged home this afternoon (3) Hypokalemia: Plan: Potassium 3.4 on admission K 3.6 today Stable at 3.6 today (4) Ebstein anomaly: Plan: Stable (5) Paroxysmal atrial tachycardia: Plan: Stable (6) Migraine: Plan: Currently denies any headache stable (7) Depression with anxiety: Plan: Continue Trazadone (8) Glaucoma: Plan: Continue outpatient eye drops Plan DVT Prophylaxis: SCDs, Lovenox Disposition Discharge home tomorrow Admission and Anticipated Discharge Date Admission Date: April 21, 2022 Total Time Total Time Spent Total Time Spent (In Minutes): 35 minutes Discharge Plan Discharge Items Patient Disposition: Home - Self-Care Reason For Visit: SYNCOPE, EKG CHANGES Discharge Diagnosis: Syncope secondary to volume depletion, diarrhea due to norovirus and E. coli infection, paroxysmal atrial tachycardia Condition on Discharge: Fair Activity: Resume your previous activity Non-emergency contact: Primary Care Provider Call non-emergency contact if: you have any medication questions and your symptoms worsen Follow-up/Referrals: Radha Rhodes DO [Primary Care Provider] - (Date & Time 04/29/2022 11:00 AM Provider Kimmy Moseley PA-C Department [facility] ) Diet: Heart Healthy Addtl Attending Provider Instructions: Please take precautions to avoid fall Try to drink more fluid and electrolytes as advised You can try [id number] Imodium for diarrhea Please give appointment with your healthcare providers Pending Studies at Discharge: No Stand-Alone Forms: [employer], Smoking Cessation Medications and DC Order Prescriptions: Continued trazodone 50 mg tablet 25 - 50 mg PO HS eletriptan [Relpax] 20 mg tablet 20 mg PO 4XD PRN (Reason: Migraine Headache) Zioptan (PF) 0.0015 % dropperette 1 drp OPB HS vitamin B complex Tablet Extended Release 1 tab PO DAILY TheraTears 0.25 % Drops 1 drp OPHTHALMIC (EYE) BID cholecalciferol (vitamin D3) 25 mcg (1,000 unit) Capsule 25 mcg PO DAILY potassium chloride 10 mEq tablet,ER particles/crystals 10 meq PO DAILY turmeric root extract 500 mg Capsule 500 mg PO DAILY magnesium oxide 400 mg magnesium Capsule 400 mg PO DAILY Calcium Magnesium 500 mg calcium -250 mg Tablet 1 tab PO DAILY Ocuvite Adult 50 Plus 250 mg (90 mg-160 mg) Capsule 1 cap PO QAM Discharge Orders: Discharge Order (Routine); Ordered 04/23/22 Ordered By: Jad Rodrigues Admission Data Admit Date/Time: 04/21/22 14:28 Attending Provider: Jad Rodrigues Admit Provider: Carmelo Polanco Primary Care Provider: Radha Rhodes Other Providers: Carmelo Polanco ; Ghulam Velez Other Interventions: Discharge Summary Assessment (RN) Last Done: 04/23/22 17:21
== END 2022-04-23 18:17 | disposition home or self-care (01) ==
LOC: 2E 09:34 → ED 09:34 → SUATTDRO 14:28 → 2E 15:37